=== PATIENT | female | born 1960 | race Caucasian/White ===

== ENCOUNTER 2022-10-09 19:05 | Emergency (ER) | payer OTHER ==
[2022-10-09 19:19] VITALS: BP 134/71; PULSE 106; RESP 20; TEMP 98.8; BMI 34.4
[2022-10-09] MEDS ORDERED: ALBUTEROL SO4 2.5/IPRATROPIUM 0.5 INH SOL 3 ML VIAL.NEB. NEB ONE (20:32)
== END 2022-10-09 21:51 | disposition home or self-care (01) ==
LOC: JERFT 19:05
PROC: 3E0F7GC Introduction of Other Therapeutic Substance into Respiratory Tract, Via Natural or Artificial Opening (ICD-10-PCS; principal; 2022-10-09)
DX: J34.89 Other specified disorders of nose and nasal sinuses (principal); R09.81 Nasal congestion; R05.9 Cough, unspecified; J40 Bronchitis, not specified as acute or chronic
CPT/HCPCS: 71046-TC-FY; 99283-25

== ENCOUNTER 2023-01-31 22:56 | Emergency (ER) | payer OTHER ==
[2023-01-31 23:10] VITALS: BP 164/60; PULSE 85; RESP 18; TEMP 97.7; BMI 37.1
[2023-01-31] MEDS ORDERED: IBUPROFEN 600 MG TABLET (FP) PO ONE ×2 (23:30→23:43)
== END 2023-02-01 00:01 | disposition home or self-care (01) ==
LOC: JER 22:56
DX: M25.561 Pain in right knee (principal); M79.675 Pain in left toe(s); S83.91XA Sprain of unspecified site of right knee, initial encounter; W01.0XXA Fall on same level from slipping, tripping and stumbling without subsequent striking against object, initial encounter
CPT/HCPCS: 73562-TC-RT-FY; 73660-TC-LT-FY; 99283-25

== ENCOUNTER 2023-03-24 14:17 | Emergency (ER) | payer OTHER ==
[2023-03-24 14:25] VITALS: BMI 35.5
[2023-03-24 16:06] LABS: BASO % 0.6 % (0-2.0); EOS % 3.6 % (0-4.5); HEMATOCRIT 38.4 % (32.4-45.2); HEMOGLOBIN 12.4 GM/dL (10.7-15.3); LYMPH % 19.8 % (8-40); MCHC 32.3 g/dl (32.0-36.0); MEAN CELL VOLUME 86.6 fl (80-96); PLATELET COUNT 305 10^3/uL (134-434); RBC 4.43 M/mm3 (3.60-5.2); RDW 14.8 % (11.6-15.6); WHITE BLOOD COUNT 12.5 K/mm3 (4.0-10.0)
[2023-03-24 16:25] LABS: POTASSIUM 4.2 mmol/L (3.5-5.1)
[2023-03-24 16:27] LABS: CALCIUM 9.3 mg/dL (8.5-10.1)
[2023-03-24 16:28] LABS: ALBUMIN 3.7 g/dl (3.4-5.0); BLOOD UREA NITROGEN 27.6 mg/dL (7-18)
[2023-03-24 16:33] LABS: BILIRUBIN,TOTAL 0.2 mg/dL (0.2-1); TOT PROT 7.6 g/dl (6.4-8.2)
[2023-03-24] MEDS ORDERED: ONDANSETRON 4 MG/2 ML VIAL ONE (16:40)
[2023-03-24] MEDS ORDERED: ONDANSETRON 4 MG/2 ML VIAL IVPUSH ONE (16:40)
[2023-03-24 19:01] VITALS: BP 154/67; PULSE 89; RESP 16; TEMP 97.5
== END 2023-03-24 19:08 | disposition home or self-care (01) ==
LOC: JERFT 14:17
PROC: 3E033GC Introduction of Other Therapeutic Substance into Peripheral Vein, Percutaneous Approach (ICD-10-PCS; principal; 2023-03-24)
DX: R22.0 Localized swelling, mass and lump, head (principal); K08.89 Other specified disorders of teeth and supporting structures
CPT/HCPCS: 36415; 70487-TC; 80053; 85025; 99285-25; Q9967

== ENCOUNTER 2023-03-25 23:47 | Emergency (ER) | payer OTHER ==
[2023-03-26 00:06] VITALS: BP 144/85; PULSE 90; RESP 18; TEMP 97.9; BMI 35.5
[2023-03-26] MEDS ORDERED: diazePAM 5 MG TABLET PO ONE (01:21)
[2023-03-26] MEDS ORDERED: diazePAM 5 MG TABLET ONE (01:39)
== END 2023-03-26 02:17 | disposition home or self-care (01) ==
LOC: JER 23:47
DX: K08.89 Other specified disorders of teeth and supporting structures (principal); R51.9 Headache, unspecified
CPT/HCPCS: 99283-25

== ENCOUNTER 2024-02-25 10:31 | Emergency (ER) | payer SELFPAY ==
[2024-02-25 10:44] VITALS: PULSE 68; RESP 18; TEMP 98.4; BMI 36.3
[2024-02-25 12:03] VITALS: BP 145/64
== END 2024-02-25 11:58 | disposition home or self-care (01) ==
LOC: JER 10:31
DX: F43.21 Adjustment disorder with depressed mood (principal); F32.A Depression, unspecified
CPT/HCPCS: 99283-25

== ENCOUNTER 2024-10-27 17:19 | Emergency (ER) | payer OTHER ==
[2024-10-27 17:26] VITALS: BP 150/85; PULSE 96; RESP 20; TEMP 98.3; BMI 35.5
[2024-10-27] MEDS ORDERED: LIDOCAINE 4% PATCH TP ONE (19:36)
[2024-10-27] MEDS ORDERED: ACETAMINOPHEN 325 MG TABLET (FP) ONE (19:37)
[2024-10-27] MEDS ORDERED: METHOCARBAMOL 500 MG TABLET ONE ×2 (19:37→21:18)
[2024-10-27] MEDS: METHOCARBAMOL 750 MG TAB PO ONE (19:54)
[2024-10-27] MEDS: ACETAMINOPHEN 325 MG TABLET (FP) PO ONE (19:55)
[2024-10-27 20:13] LABS: ABSOLUTE IMMATURE GRANULOCYTES 0.03 x10^3/uL (0.0-0.031); BASOPHILS # 0.07 x10^3/uL (0.01-0.08); EOSINOPHIL % 2.3 % (0.7-5.8); EOSINOPHILS # 0.25 x10^3/uL (0.04-0.36); MCHC 31.3 g/dl (32.2-35.5); MEAN CELL VOLUME 90.2 fl (79.4-94.8); MEAN PLT VOLUME 10.9 fl (9.4-12.3); MONOCYTE # 0.63 x10^3/uL (0.24-0.86); MONOCYTE % 5.9 % (4.7-12.5); RDW 13.6 % (12.4-16.4)
[2024-10-27] MEDS: LIDOCAINE 4% PATCH TP ONE (20:14)
[2024-10-27 20:24] LABS: CO2 25.0 mmol/L (21-32); GLUCOSE,RANDOM 128.0 mg/dL (74-106)
[2024-10-27 20:27] LABS: CREATININE 1.2 mg/dL (0.55-1.3); SGOT/AST 34.0 U/L (15-37); SGPT/ALT 31.0 U/L (13-61)
[2024-10-27 20:28] LABS: TOT PROT 7.9 g/dl (6.4-8.2)
[2024-10-27 20:30] LABS: ALK PHOS 121.0 U/L (45-117)
[2024-10-27] MEDS: METHOCARBAMOL 500 MG TABLET PO ONE (21:56)
[2024-10-28] MEDS ORDERED: LIDOCAINE PATCH REMOVAL MC SCH (06:30)
[2024-10-28 13:10] LABS: HIV INTERPRETATION NEGATIVE (NEGATIVE)
[2024-10-28 13:16] LABS: HCV DIAGNOSTIC IN-HOUSE W/RFLX NON-REACTIVE (NONREACTIVE)
== END 2024-10-27 22:00 | disposition home or self-care (01) ==
LOC: JER 17:19
DX: M62.830 Muscle spasm of back (principal); M54.50 Low back pain, unspecified
CPT/HCPCS: 36415; 80053; 85025; 86803; 87389; 99283-25